=== PATIENT | male | born 1970 | race Caucasian/White ===

== ENCOUNTER 2021-08-17 04:52 | Inpatient (IN) | payer MEDICAID, OTHER ==
[~2021-08-17] VITALS: Ht 154.9 cm; Wt 70.3 kg
[2021-08-17] MEDS ORDERED: ONDANSETRON HCL 4MG/2ML INJ IV STA ×2 (05:26→07:50)
[2021-08-17] MEDS ORDERED: KETOROLAC 30MG/ML VIAL IV STA (05:26)
[2021-08-17] MEDS ORDERED: SODIUM CHLORIDE 0.9% 1,000 ML IV ONE (05:30)
[2021-08-17 05:49] LABS: BASOPHILS % 0.8 % (0.0-2.0); EOSINOPHILS % 0.1 % (0.0-5.0); HEMATOCRIT. 43.5 % (42.0-52.0); HEMOGLOBIN. 14.5 g/dL (14.0-18.0); LYMPHOCYTES % 10.7 % (20.0-50.0); MEAN CORPUSCULAR HEMOGLOBIN 30.2 pg (28.0-32.0); MEAN CORPUSCULAR VOLUME 90.5 fL (80.0-94.0); MEAN PLATELET VOLUME 7.2 fl (7.4-10.4); MONOCYTES % 9.5 % (2.0-8.0); NEUTROPHILS % 78.9 % (40.0-76.0); PLATELET 386 x1000/uL (130-400); RED BLOOD CELL COUNT 4.81 mill/uL (4.7-6.1); RED CELL DISTRIBUTION WIDTH 12.7 % (11.6-14.6)
[2021-08-17 05:52] LABS: CHLORIDE 104 mEq/L (98-107)
[2021-08-17 05:56] LABS: ETHANOL BLOOD < 10 mg/dL
[2021-08-17 07:01] LABS: CLARITY URINE CLEAR (CLEAR); COLOR URINE DARK YELLOW (YELLOW); KETONES URINE TRACE (NEGATIVE); LEUKOCYTE ESTERASE URINE TRACE (NEGATIVE); NITRITE URINE NEGATIVE (NEGATIVE); OCCULT BLOOD URINE NEGATIVE (NEGATIVE); PH URINE >=9.0 (4.5-8.0); PROTEIN URINE 1+ (NEGATIVE); SPECIFIC GRAVITY URINE 1.026 (1.005-1.030)
[2021-08-17] MEDS ORDERED: MORPHINE SULFATE 4 MG/ML CPJ (NOT FOR IM USE) IV STA (07:50)
[2021-08-17] MEDS ORDERED: PIPERACILLIN/TAZ 3.375G PREMIX 50 ML IV ONE (09:00)
[2021-08-17] MEDS ORDERED: CLONIDINE 0.1MG TABLET PO PRN (12:00)
[2021-08-17] MEDS ORDERED: IPRATROPIUM/ALBUTEROL 0.5-3(2.5)MG/3ML NEB HHN PRN (12:00)
[2021-08-17] MEDS ORDERED: ONDANSETRON HCL 4MG/2ML INJ IV PRN (12:00)
[2021-08-17] MEDS ORDERED: DIPHENHYDRAMINE 50MG/ML VIAL IV PRN (12:00)
[2021-08-17] MEDS: SODIUM CHLORIDE 0.9% 1,000 ML IV SCH (12:00)
[2021-08-17] MEDS ORDERED: MORPHINE SULFATE 2 MG/ML CPJ (NOT FOR IM USE) IV PRN (12:00)
[2021-08-17 13:00] VITALS: BP 148/89
[2021-08-17] MEDS: PIPERACILLIN/TAZOBACTAM 3.375 G in DEXTROSE 5% WATER 50 ML IV SCH ×2 (16:00→21:42)
[2021-08-17] MEDS ORDERED: DEXTROSE 50% WATER 50ML SYRINGE IV PRN (17:00)
[2021-08-17] MEDS: INSULIN LISPRO 100 UNITS/ML SUBCUT SCH ×2 (17:44→20:42)
[2021-08-17] MEDS: BLOOD SUGAR DIAGNOSTIC STRIP TEST SCH ×2 (17:44→20:27)
[2021-08-17] MEDS ORDERED: NALOXONE HCL 0.4MG/ML VIAL IV PRN (18:30)
[2021-08-17 20:00] VITALS: BP 156/85
[2021-08-18] VITALS (7 sets, daily range): BP systolic 113–134; BP diastolic 71–76
[2021-08-18] MEDS: SODIUM CHLORIDE 0.9% 1,000 ML IV SCH ×2 (01:20→14:40)
[2021-08-18] MEDS: PIPERACILLIN/TAZOBACTAM 3.375 G in DEXTROSE 5% WATER 50 ML IV SCH ×3 (05:30→21:32)
[2021-08-18] MEDS: BLOOD SUGAR DIAGNOSTIC STRIP TEST SCH ×4 (06:35→21:25)
[2021-08-18 07:14] LABS: BASOPHILS % 0.3 % (0.0-2.0); EOSINOPHILS % 0.1 % (0.0-5.0); HEMATOCRIT. 41.1 % (42.0-52.0); HEMOGLOBIN. 13.9 g/dL (14.0-18.0); LYMPHOCYTES % 7.5 % (20.0-50.0); MEAN CORPUSCULAR HEMOGLOBIN 30.8 pg (28.0-32.0); MEAN PLATELET VOLUME 6.9 fl (7.4-10.4); MONOCYTES % 9.3 % (2.0-8.0); NEUTROPHILS % 82.8 % (40.0-76.0); PLATELET 343 x1000/uL (130-400); RED BLOOD CELL COUNT 4.52 mill/uL (4.7-6.1); RED CELL DISTRIBUTION WIDTH 12.8 % (11.6-14.6)
[2021-08-18 07:24] LABS: CHLORIDE 105 mEq/L (98-107)
[2021-08-18 07:32] LABS: LDL CHOLESTEROL 36 mg/dL (5-100)
[2021-08-18 07:33] LABS: HDL CHOLESTEROL 51 mg/dL (40-59)
[2021-08-18] MEDS: INSULIN LISPRO 100 UNITS/ML SUBCUT SCH ×4 (07:50→21:00)
[2021-08-18] MEDS: ACETAMINOPHEN 325MG TABLET PO PRN ×2 (10:56→20:50)
[2021-08-19 04:00] VITALS: BP 113/68
[2021-08-19] MEDS: SODIUM CHLORIDE 0.9% 1,000 ML IV SCH ×2 (04:17→17:27)
[2021-08-19] MEDS: PIPERACILLIN/TAZOBACTAM 3.375 G in DEXTROSE 5% WATER 50 ML IV SCH ×3 (06:05→21:04)
[2021-08-19 06:19] LABS: HEMATOCRIT. 42.1 % (42.0-52.0); HEMOGLOBIN. 13.9 g/dL (14.0-18.0); MEAN CORPUSCULAR HEMOGLOBIN 29.7 pg (28.0-32.0); MEAN CORPUSCULAR VOLUME 90.2 fL (80.0-94.0); MEAN PLATELET VOLUME 7.2 fl (7.4-10.4); PLATELET 365 x1000/uL (130-400); RED BLOOD CELL COUNT 4.67 mill/uL (4.7-6.1); RED CELL DISTRIBUTION WIDTH 12.6 % (11.6-14.6)
[2021-08-19] MEDS: BLOOD SUGAR DIAGNOSTIC STRIP TEST SCH ×3 (06:20→20:54)
[2021-08-19 06:48] LABS: CHLORIDE 103 mEq/L (98-107)
[2021-08-19] MEDS: INSULIN LISPRO 100 UNITS/ML SUBCUT SCH ×3 (07:19→20:55)
[2021-08-19] MEDS: ACETAMINOPHEN 325MG TABLET PO PRN ×3 (07:19→20:21)
[2021-08-19 08:00] VITALS: BP 102/69
[2021-08-19 12:00] VITALS: BP 105/70
[2021-08-19 13:32] LABS: PLATELET ESTIMATE NORMAL
[2021-08-19] MEDS: DOCUSATE SODIUM 100MG CAPSULE PO SCH (17:25)
[2021-08-19 20:00] VITALS: BP_SYST 103; BP_SYST 116; BP_DIAS 63; BP_DIAS 75
[2021-08-20] VITALS: BP 114/75
[2021-08-20 04:00] VITALS: BP 117/65
[2021-08-20] MEDS: PIPERACILLIN/TAZOBACTAM 3.375 G in DEXTROSE 5% WATER 50 ML IV SCH ×3 (05:53→21:16)
[2021-08-20] MEDS: ACETAMINOPHEN 325MG TABLET PO PRN ×2 (05:56→21:16)
[2021-08-20] MEDS: SODIUM CHLORIDE 0.9% 1,000 ML IV SCH (06:20)
[2021-08-20] MEDS: BLOOD SUGAR DIAGNOSTIC STRIP TEST SCH ×4 (06:21→21:00)
[2021-08-20 06:41] LABS: BASOPHILS % 0.4 % (0.0-2.0); EOSINOPHILS % 0.1 % (0.0-5.0); HEMATOCRIT. 39.1 % (42.0-52.0); HEMOGLOBIN. 13.4 g/dL (14.0-18.0); LYMPHOCYTES % 7.9 % (20.0-50.0); MEAN CORPUSCULAR HEMOGLOBIN 31.2 pg (28.0-32.0); MEAN CORPUSCULAR VOLUME 90.7 fL (80.0-94.0); MONOCYTES % 8.4 % (2.0-8.0); NEUTROPHILS % 83.2 % (40.0-76.0); PLATELET 394 x1000/uL (130-400); RED BLOOD CELL COUNT 4.31 mill/uL (4.7-6.1); RED CELL DISTRIBUTION WIDTH 12.7 % (11.6-14.6)
[2021-08-20 06:54] LABS: CHLORIDE 102 mEq/L (98-107)
[2021-08-20] MEDS: INSULIN LISPRO 100 UNITS/ML SUBCUT SCH ×4 (06:55→21:00)
[2021-08-20 08:00] VITALS: BP 105/66
[2021-08-20] MEDS: DOCUSATE SODIUM 100MG CAPSULE PO SCH ×2 (09:00→17:00)
[2021-08-20 12:00] VITALS: BP 105/71
[2021-08-20 16:00] VITALS: BP 115/70
[2021-08-20 17:09] LABS: INR 1.1; PROTHROMBIN TIME 11.9 sec (9.6-11.0)
[2021-08-20 20:00] VITALS: BP 98/64
[2021-08-21] VITALS: BP 108/68
[2021-08-21 04:00] VITALS: BP 109/68
[2021-08-21] MEDS: PIPERACILLIN/TAZOBACTAM 3.375 G in DEXTROSE 5% WATER 50 ML IV SCH ×3 (05:46→21:43)
[2021-08-21] MEDS: SODIUM CHLORIDE 0.9% 1,000 ML IV SCH ×2 (05:46→14:56)
[2021-08-21] MEDS: BLOOD SUGAR DIAGNOSTIC STRIP TEST SCH ×4 (06:58→21:00)
[2021-08-21] MEDS: INSULIN LISPRO 100 UNITS/ML SUBCUT SCH ×4 (07:50→21:48)
[2021-08-21 08:00] VITALS: BP 104/68
[2021-08-21] MEDS: DOCUSATE SODIUM 100MG CAPSULE PO SCH ×2 (08:41→17:52)
[2021-08-21] MEDS ORDERED: ROCURONIUM BROMIDE 10MG/ML VIAL 5ML IV ONE ×2 (09:11→10:20)
[2021-08-21] MEDS ORDERED: MIDAZOLAM HCL 2 MG/2 ML VIAL ONE ×2 (09:11→10:20)
[2021-08-21] MEDS ORDERED: FENTANYL CITRATE/PF 50MCG/ML 2ML VIAL ONE ×3 (09:11→11:35)
[2021-08-21] MEDS ORDERED: SODIUM CHLORIDE 0.9% 10ML VIAL ONE ×2 (09:11→10:21)
[2021-08-21] MEDS ORDERED: CEFAZOLIN SODIUM 1000MG/VIAL ONE ×2 (09:11→10:21)
[2021-08-21] MEDS ORDERED: PROPOFOL 200MG/20ML VIAL IV ONE ×2 (09:11→10:20)
[2021-08-21] MEDS ORDERED: BUPIVACAINE HCL 0.5% (5MG/ML) 50ML ONE (09:18)
[2021-08-21] MEDS ORDERED: SKIN ADHESIVE 0.7 GM EA TOP ONE (09:18)
[2021-08-21 09:45] LABS: BASOPHILS % 0.5 % (0.0-2.0); EOSINOPHILS % 0.5 % (0.0-5.0); HEMATOCRIT. 39.1 % (42.0-52.0); LYMPHOCYTES % 11.8 % (20.0-50.0); MEAN CORPUSCULAR HEMOGLOBIN 29.9 pg (28.0-32.0); MEAN PLATELET VOLUME 6.7 fl (7.4-10.4); MONOCYTES % 9.2 % (2.0-8.0); PLATELET 462 x1000/uL (130-400); RED BLOOD CELL COUNT 4.34 mill/uL (4.7-6.1); RED CELL DISTRIBUTION WIDTH 12.8 % (11.6-14.6)
[2021-08-21 09:54] LABS: CHLORIDE 106 mEq/L (98-107)
[2021-08-21 10:08] LABS: PHOSPHORUS 1.7 mg/dL (2.5-4.9)
[2021-08-21] MEDS ORDERED: NEOSTIGMINE METHYLSULFATE 1MG/ML 10 ML VIAL ONE (10:20)
[2021-08-21] MEDS ORDERED: PHENYLEPHRINE HCL 10 MG/ML 1ML (IV VIAL) IV ONE (10:21)
[2021-08-21] MEDS ORDERED: METOCLOPRAMIDE HCL 10MG/2ML VIAL ONE (10:21)
[2021-08-21] MEDS ORDERED: GLYCOPYRROLATE 0.2 MG/ML 2ML VIAL ONE (10:21)
[2021-08-21] MEDS ORDERED: ONDANSETRON HCL 4MG/2ML INJ ONE (10:21)
[2021-08-21] MEDS ORDERED: SUCCINYLCHOLINE CHLORIDE 200MG/10ML IV ONE (10:21)
[2021-08-21] MEDS ORDERED: KETOROLAC 30MG/ML VIAL ONE (11:29)
[2021-08-21] MEDS ORDERED: ONDANSETRON HCL 4MG/2ML INJ IV PRN ×2 (11:45→12:00)
[2021-08-21] MEDS ORDERED: HYDROCODONE/ACETAMINOPHEN 5/325MG TABLET PO PRN ×2 (11:45)
[2021-08-21] MEDS ORDERED: MORPHINE SULFATE 2 MG/ML CPJ (NOT FOR IM USE) IV PRN (11:45)
[2021-08-21] MEDS ORDERED: FENTANYL CITRATE/PF 50MCG/ML 2ML VIAL IV PRN (12:00)
[2021-08-21] MEDS ORDERED: HYDROMORPHONE HCL/PF 2MG/ML CPJ IV PRN (12:00)
[2021-08-21 13:30] VITALS: BP 100/61
[2021-08-21] MEDS: SODIUM CHLORIDE 0.9% INJ 3ML FLUSH IVF SCH ×2 (14:46→21:43)
[2021-08-21] MEDS: DEXT 5%/0.45% NACL KCL 20MEQ/L 1,000 ML IV SCH ×2 (14:46→22:19)
[2021-08-21 16:00] VITALS: BP 100/64
[2021-08-21 20:00] VITALS: BP 104/70
[2021-08-21 21:54] LABS: BASOPHILS % 0.5 % (0.0-2.0); EOSINOPHILS % 0.5 % (0.0-5.0); HEMATOCRIT. 37.8 % (42.0-52.0); HEMOGLOBIN. 12.4 g/dL (14.0-18.0); LYMPHOCYTES % 14.1 % (20.0-50.0); MEAN CORPUSCULAR HEMOGLOBIN 29.9 pg (28.0-32.0); MEAN CORPUSCULAR VOLUME 91.4 fL (80.0-94.0); MEAN PLATELET VOLUME 6.7 fl (7.4-10.4); MONOCYTES % 6.8 % (2.0-8.0); NEUTROPHILS % 78.1 % (40.0-76.0); PLATELET 433 x1000/uL (130-400); RED BLOOD CELL COUNT 4.13 mill/uL (4.7-6.1)
[2021-08-21 22:01] LABS: CHLORIDE 105 mEq/L (98-107)
[2021-08-21] MEDS: MORPHINE SULFATE 2 MG/ML CPJ (NOT FOR IM USE) IV PRN (23:32)
[2021-08-21] MEDS: ACETAMINOPHEN 325MG TABLET PO PRN (23:37)
[2021-08-22] VITALS: BP 108/69
[2021-08-22] MEDS: MORPHINE SULFATE 2 MG/ML CPJ (NOT FOR IM USE) IV PRN ×4 (03:58→21:32)
[2021-08-22 04:00] VITALS: BP 93/56
[2021-08-22] MEDS: SODIUM CHLORIDE 0.9% INJ 3ML FLUSH IVF SCH ×3 (06:20→21:29)
[2021-08-22] MEDS: PIPERACILLIN/TAZOBACTAM 3.375 G in DEXTROSE 5% WATER 50 ML IV SCH ×2 (06:21→13:25)
[2021-08-22] MEDS: BLOOD SUGAR DIAGNOSTIC STRIP TEST SCH ×4 (06:21→21:00)
[2021-08-22 07:47] LABS: HEMATOCRIT. 35.7 % (42.0-52.0); HEMOGLOBIN. 11.9 g/dL (14.0-18.0); MEAN CORPUSCULAR HEMOGLOBIN 30.3 pg (28.0-32.0); MEAN CORPUSCULAR VOLUME 90.8 fL (80.0-94.0); MEAN PLATELET VOLUME 6.6 fl (7.4-10.4); PLATELET 465 x1000/uL (130-400); RED BLOOD CELL COUNT 3.93 mill/uL (4.7-6.1); RED CELL DISTRIBUTION WIDTH 12.7 % (11.6-14.6)
[2021-08-22] MEDS: INSULIN LISPRO 100 UNITS/ML SUBCUT SCH ×4 (07:50→21:00)
[2021-08-22 08:00] VITALS: BP 106/67
[2021-08-22 08:00] LABS: CHLORIDE 103 mEq/L (98-107)
[2021-08-22] MEDS: ACETAMINOPHEN 325MG TABLET PO PRN (09:05)
[2021-08-22] MEDS: DOCUSATE SODIUM 100MG CAPSULE PO SCH ×2 (09:06→17:46)
[2021-08-22] MEDS: DEXT 5%/0.45% NACL KCL 20MEQ/L 1,000 ML IV SCH (09:07)
[2021-08-22] MEDS: SODIUM CHLORIDE 0.9% 1,000 ML IV SCH ×2 (10:56→21:27)
[2021-08-22 12:00] VITALS: BP 109/72
[2021-08-22 14:05] LABS: PLATELET ESTIMATE INCREASED
[2021-08-22 16:00] VITALS: BP 114/68
[2021-08-22 20:00] VITALS: BP 117/73
[2021-08-23] VITALS: BP 118/74
[2021-08-23] MEDS: MORPHINE SULFATE 2 MG/ML CPJ (NOT FOR IM USE) IV PRN ×2 (01:24→09:09)
[2021-08-23 04:00] VITALS: BP 113/73
[2021-08-23] MEDS: SODIUM CHLORIDE 0.9% 1,000 ML IV SCH ×2 (06:17→17:44)
[2021-08-23] MEDS: SODIUM CHLORIDE 0.9% INJ 3ML FLUSH IVF SCH ×3 (06:17→22:06)
[2021-08-23] MEDS: BLOOD SUGAR DIAGNOSTIC STRIP TEST SCH ×4 (06:22→21:00)
[2021-08-23 07:32] LABS: HEMATOCRIT. 34.7 % (42.0-52.0); HEMOGLOBIN. 11.4 g/dL (14.0-18.0); MEAN CORPUSCULAR HEMOGLOBIN 29.8 pg (28.0-32.0); MEAN CORPUSCULAR VOLUME 90.6 fL (80.0-94.0); MEAN PLATELET VOLUME 6.7 fl (7.4-10.4); PLATELET 520 x1000/uL (130-400); RED BLOOD CELL COUNT 3.83 mill/uL (4.7-6.1); RED CELL DISTRIBUTION WIDTH 12.8 % (11.6-14.6)
[2021-08-23 07:34] LABS: CHLORIDE 104 mEq/L (98-107)
[2021-08-23] MEDS: INSULIN LISPRO 100 UNITS/ML SUBCUT SCH ×4 (07:50→21:00)
[2021-08-23 08:00] VITALS: BP 130/82
[2021-08-23] MEDS: DOCUSATE SODIUM 100MG CAPSULE PO SCH ×2 (09:08→17:59)
[2021-08-23 12:00] VITALS: BP 121/79
[2021-08-23 14:06] LABS: PLATELET ESTIMATE INCREASED
[2021-08-23 16:00] VITALS: BP 141/90
[2021-08-23] MEDS ORDERED: ONDA4TAB11 PO (16:12)
[2021-08-23] MEDS ORDERED: HYDR-4001 MT (16:12)
[2021-08-24] MEDS: SODIUM CHLORIDE 0.9% INJ 3ML FLUSH IVF SCH (06:17)
[2021-08-24] MEDS: SODIUM CHLORIDE 0.9% 1,000 ML IV SCH (06:17)
[2021-08-24] MEDS: BLOOD SUGAR DIAGNOSTIC STRIP TEST SCH (07:20)
[2021-08-24] MEDS: INSULIN LISPRO 100 UNITS/ML SUBCUT SCH (07:50)
[2021-08-24 08:00] VITALS: BP 120/75
[2021-08-24] MEDS: DOCUSATE SODIUM 100MG CAPSULE PO SCH (09:09)
[2021-08-24 09:13] LABS: HEMATOCRIT. 37.4 % (42.0-52.0); HEMOGLOBIN. 12.6 g/dL (14.0-18.0); MEAN CORPUSCULAR HEMOGLOBIN 30.5 pg (28.0-32.0); MEAN CORPUSCULAR VOLUME 90.8 fL (80.0-94.0); MEAN PLATELET VOLUME 6.5 fl (7.4-10.4); PLATELET 629 x1000/uL (130-400); RED BLOOD CELL COUNT 4.12 mill/uL (4.7-6.1); RED CELL DISTRIBUTION WIDTH 12.9 % (11.6-14.6)
[2021-08-24 09:28] LABS: CHLORIDE 103 mEq/L (98-107)
[2021-08-24 11:24] VITALS: BP 145/90
[2021-08-24 12:00] VITALS: BP 145/90
[2021-08-24 15:26] LABS: PLATELET ESTIMATE INCREASED
== END 2021-08-24 12:10 | disposition home or self-care (01) | DRG 710 ==
LOC: ER 04:52 → 6EST 10:26 → EDBEDREQTM 10:33 → EDBEDREQ 10:33 → ENRESERV 11:01 → ER 11:39
PROVIDERS: ADMIT Internal Medicine; ATTEND Internal Medicine
PROC: 0FT44ZZ Resection of Gallbladder, Percutaneous Endoscopic Approach (ICD-10-PCS; principal; 2021-08-21)
DX: A41.9 Sepsis, unspecified organism (principal); K81.0 Acute cholecystitis; K82.A1 Gangrene of gallbladder in cholecystitis; K76.0 Fatty (change of) liver, not elsewhere classified; K82.8 Other specified diseases of gallbladder; K66.0 Peritoneal adhesions (postprocedural) (postinfection); E11.65 Type 2 diabetes mellitus with hyperglycemia; Z20.822 Contact with and (suspected) exposure to COVID-19; R32 Unspecified urinary incontinence; Z79.84 Long term (current) use of oral hypoglycemic drugs
CPT/HCPCS: 36415; 71045; 73706; 74176; 76705; 78227; 80048; 80053; 80061; 80320; 81003; 82962; 83036; 83605; 83735; 84100; 84145; 84443; 84484; 85025; 86850; 86900; 87426; 88304; 93005; 93970; 99285; A9537; C1893; J0330; J0690; J1170; J1815; J1885; J2250; J2270; J2370; J2405; J2543; J2704; J2710; J2765; J3010; J3490; J7030; J7060; G0480